=== PATIENT | male | born 1950 | race Caucasian/White ===

== ENCOUNTER → 2017-07-30 | Day surgery (SDC) | payer OTHER, MEDICARE, MEDICAID ==
[2017-07-29 12:22] LABS: BASOPHILS % (AUTO) 0.4 % (0-1); EOSINOPHILS # (AUTO) 0.3 X10'3 (0-0.9); EOSINOPHILS % (AUTO) 2.6 % (0-6); LYMPHOCYTES # (AUTO) 1.5 X10'3 (1.1-4.8); LYMPHOCYTES % (AUTO) 15.7 % (21-51); MEAN CORPUSCULAR HEMOGLOBIN 30.4 PG (27.0-31.0); MEAN CORPUSCULAR HGB CONC 33.9 % (33.0-36.5); MEAN CORPUSCULAR VOLUME 89.6 FL (78-98); MEAN PLATELET VOLUME 9.6 FL (7.4-10.4); MONOCYTES # (AUTO) 0.9 X10'3 (0-0.9); MONOCYTES % (AUTO) 9.3 % (2-12); NEUTROPHILS # (AUTO) 7.1 X10'3 (1.8-7.7); PRE OP HEMOGLOBIN 14.6 g/dL (14.0-17.9); PRE OP PLATELET COUNT 193 X10'3 (140-440); RED CELL DISTRIBUTION WIDTH 15.2 % (11.5-14.5)
[2017-07-29 12:24] LABS: CLARITY,URINE CLEAR (Clear); COLOR,URINE YELLOW (Yellow); GLUCOSE, URINE NEGATIVE (Neg); KETONES,URINE NEGATIVE (Neg); LEUKOCYTE ESTERASE ,URINE NEGATIVE (Neg); NITRITES, URINE NEGATIVE (Neg); OCCULT BLOOD,URINE NEGATIVE (Neg); PH,URINE 5.5 (4.8-8.0); PROTEIN,URINE NEGATIVE (Neg); UROBILINOGEN,URINE 0.2 E.U/dL (0.2-1.0)
[2017-07-29 12:25] LABS: UA COLLECTION TYPE NON-SPECIFIED
[2017-07-29 12:32] LABS: HEMOGLOBIN A1C 5.7 % (4.5-6.2)
[2017-07-29 12:36] LABS: ALBUMIN 3.9 G/DL (3.4-5.0); ALBUMIN/GLOBULIN RATIO 0.9 (1.1-1.5); ALKALINE PHOSPHATASE 119 IU/L (46-116); BLOOD UREA NITROGEN 16 MG/DL (7-18); BUN/CREATININE RATIO 11.1 (5.4-32.0); CALCIUM 9.3 MG/DL (8.5-10.1); CHLORIDE 105 MMOL/L (99-107); CREATININE 1.44 MG/DL (0.60-1.10); PRE OP ALT 21 U/L (30-65); PRE OP ANION GAP 8 (8-16); PRE OP AST 15 U/L (10-37); PRE OP BILIRUB, TOTAL 0.4 MG/DL (0.0-1.0); PRE OP GLUCOSE 108 MG/DL (70-104); PRE OP POTASSIUM 4.4 MMOL/L (3.4-5.1); PRE OP SODIUM 140 MMOL/L (135-145); TOTAL CARBON DIOXIDE 26.9 MMOL/L (24-32); TOTAL PROTEIN 8.2 G/DL (6.4-8.2); eGFR 49 ML/MIN
[~2017-07-30] VITALS: Ht 185.4 cm; Wt 72.1 kg
[~2017-07-30] MED LIST: ASPI-1265 PO; ATOR10TA PO; BUPIVAcaine 0.5% inj/PF 30 ML ONE; BUPIVAcaine/PF 2.5 mg/ml (0.25%) 30ml vial ONE; DOCUMENT DATE & TIME OF BETA-BLOCKER PO ONE; FLO0.4C PO; LIDOcaine 1% (10mg/ml) 2ml vial ONE; LIDOcaine 1% 30ml vial 30 ML ONE; LIDOcaine 2% (20mg/ml) 5ml vial ONE; METO25TA6 PO; cefazolin/dext.iso 2gm/50ml 50 ML IV ONE; dextrose 50%-water 50ml dispensing syringe IV PRN; famotidine 20mg tablet PO ONE; fentaNYL/PF 50MCG/1 ML 2ML syringe ONE; glycopyrrolate 0.2mg/ml inj ONE; insulin regular, human 100 UNITS in normal saline 100ml IV soln 99 ML IV SCH; meperidine/PF 50mg/ml syringe IV PRN; metoprolol tartrate 12.5mg (1/2 tablet) PO ONE; midazolam 2 mg/2 ml injection ONE; morphine 2 MG/ML inj. syringe IV PRN; mupirocin 2% ointment 22GM TP SCH; neostigmine methylsulfate 1 MG/ML 10ml vial ONE; ondansetron/PF 4mg/2ml inj IV PRN; proCHLORperazine 10 MG/2 ml inj IV PRN; propofol inj 20 ML IV ONE; ringers solution, lacted 1,000 ML IV SCH; rocuronium 10mg/ml inj IV ONE; sevoflurane 250ml liquid IH ONE
[2017-07-30 09:50] VITALS: BP 109/72
[2017-07-30 10:00] VITALS: BP 111/68
[2017-07-30 10:10] VITALS: BP 115/77
[2017-07-30 10:20] VITALS: BP_SYST 110; BP_SYST 113; BP_DIAS 65; BP_DIAS 69
[2017-07-30 10:30] VITALS: BP 111/71
[2017-07-30 10:40] VITALS: BP 115/75
== END | disposition home or self-care (01) ==
LOC: PAS 05:21
PROVIDERS: ATTEND Thoracic Surgery (Cardiothoracic Vascular Surgery)
DX: T82.847A Pain due to cardiac prosthetic devices, implants and grafts, initial encounter (principal); I25.10 Atherosclerotic heart disease of native coronary artery without angina pectoris; I10 Essential (primary) hypertension; F32.89 Other specified depressive episodes; E78.00 Pure hypercholesterolemia, unspecified; B19.20 Unspecified viral hepatitis C without hepatic coma; N40.0 Benign prostatic hyperplasia without lower urinary tract symptoms; G89.18 Other acute postprocedural pain; Z87.891 Personal history of nicotine dependence; Z86.711 Personal history of pulmonary embolism; Z90.89 Acquired absence of other organs; Z79.82 Long term (current) use of aspirin; Z79.899 Other long term (current) drug therapy; Z95.1 Presence of aortocoronary bypass graft; Y83.2 Surgical operation with anastomosis, bypass or graft as the cause of abnormal reaction of the patient, or of later complication, without mention of misadventure at the time of the procedure; Y92.9 Unspecified place or not applicable
CPT/HCPCS: 20680; 36415; 71046; 80053; 81003; 82948; 83036; 85025; 85610; 85730; 86885; 86900; 86901; 93005; A6255; A6449; J0690; J2001; J2250; J2704; J2710; J3010; J3490; J7030; J7120; A7000; J1815

== ENCOUNTER 2020-03-19 08:43 | Day surgery (SDC) | payer MEDICARE, MEDICAID ==
[2020-03-19] VITALS (10 sets, daily range): BP systolic 103–146; BP diastolic 65–97
[~2020-03-19] VITALS: Ht 190.5 cm; Wt 77.0 kg
[~2020-03-19 08:43] MED LIST changes: -BUPIVAcaine 0.5% inj/PF 30 ML ONE; -BUPIVAcaine/PF 2.5 mg/ml (0.25%) 30ml vial ONE; -DOCUMENT DATE & TIME OF BETA-BLOCKER PO ONE; -LIDOcaine 1% (10mg/ml) 2ml vial ONE; -LIDOcaine 1% 30ml vial 30 ML ONE; -LIDOcaine 2% (20mg/ml) 5ml vial ONE; -cefazolin/dext.iso 2gm/50ml 50 ML IV ONE; -dextrose 50%-water 50ml dispensing syringe IV PRN; -famotidine 20mg tablet PO ONE; -fentaNYL/PF 50MCG/1 ML 2ML syringe ONE; -glycopyrrolate 0.2mg/ml inj ONE; -insulin regular, human 100 UNITS in normal saline 100ml IV soln 99 ML IV SCH; -meperidine/PF 50mg/ml syringe IV PRN; -metoprolol tartrate 12.5mg (1/2 tablet) PO ONE; -midazolam 2 mg/2 ml injection ONE; -morphine 2 MG/ML inj. syringe IV PRN; -mupirocin 2% ointment 22GM TP SCH; -neostigmine methylsulfate 1 MG/ML 10ml vial ONE; -ondansetron/PF 4mg/2ml inj IV PRN; -proCHLORperazine 10 MG/2 ml inj IV PRN; -propofol inj 20 ML IV ONE; -ringers solution, lacted 1,000 ML IV SCH; -rocuronium 10mg/ml inj IV ONE; -sevoflurane 250ml liquid IH ONE
[2020-03-19] MEDS ORDERED: diphenhydrAMINE 25mg capsule PO PRN (09:05)
[2020-03-19] MEDS ORDERED: normal saline 1,000 ML IV SCH ×2 (09:05→13:20)
[2020-03-19] MEDS ORDERED: RIVA20TA PO (09:10)
[2020-03-19] MEDS ORDERED: ATOR20TA PO (09:10)
[2020-03-19] MEDS ORDERED: CARV25TA PO (09:10)
[2020-03-19] MEDS ORDERED: AMLO5TAB PO (09:10)
[2020-03-19 09:43] LABS: BASOPHILS % (AUTO) 0.7 % (0-1); EOSINOPHILS # (AUTO) 0.3 X10'3 (0-0.9); HEMATOCRIT 45.2 % (42.0-52.0); HEMOGLOBIN 15.2 g/dl (14.0-17.9); LYMPHOCYTES # (AUTO) 1.4 X10'3 (1.1-4.8); LYMPHOCYTES % (AUTO) 22.7 % (21-51); MEAN CORPUSCULAR HGB CONC 33.6 g/dL (33.0-36.5); MEAN CORPUSCULAR VOLUME 95.5 FL (78-98); MEAN PLATELET VOLUME 9.9 FL (7.4-10.4); MONOCYTES # (AUTO) 0.7 X10'3 (0-0.9); MONOCYTES % (AUTO) 11.5 % (2-12); NEUTROPHILS # (AUTO) 3.8 X10'3 (1.8-7.7); NEUTROPHILS % (AUTO) 61.1 % (42-75); PLATELET COUNT 167 X10'3 (140-440); RED BLOOD COUNT 4.74 X10'6 (4.70-6.10); RED CELL DISTRIBUTION WIDTH 14.2 % (11.5-14.5); WHITE BLOOD COUNT 6.2 X10'3 (4.5-11.0)
[2020-03-19 09:56] LABS: ALBUMIN 3.9 G/DL (3.4-5.0); ANION GAP 6 (8-16); BLOOD UREA NITROGEN 13 MG/DL (7-18); BUN/CREATININE RATIO 8.7 (5.4-32.0); CALCIUM 9.5 MG/DL (8.5-10.1); CHLORIDE 105 MMOL/L (99-107); CREATININE 1.49 MG/DL (0.60-1.10); GLUCOSE 98 MG/DL (70-104); MAGNESIUM 2.2 MG/DL (1.5-2.4); POTASSIUM 4.1 MMOL/L (3.5-5.1); SODIUM 136 MMOL/L (135-145); TOTAL CARBON DIOXIDE 25.5 MMOL/L (24-32); eGFR 47 ML/MIN
[2020-03-19] MEDS ORDERED: iohexol 350 MG/ML 50ML vial IV ONE (10:43)
[2020-03-19] MEDS ORDERED: LIDOcaine 1% (10mg/ml)w/preservative injection 20ml MDV ONE (10:43)
[2020-03-19] MEDS ORDERED: heparin 1,000unit/ml 10ml vial 10 ML ONE ×2 (10:43→12:23)
[2020-03-19] MEDS ORDERED: fentaNYL/PF 50MCG/1 ML 2ML syringe ONE ×2 (10:43→12:22)
[2020-03-19] MEDS ORDERED: iohexol 350 MG/1 ML 200ml bottle ONE (10:43)
[2020-03-19] MEDS ORDERED: proCHLORperazine 10 MG/2 ml inj ONE (10:43)
[2020-03-19] MEDS ORDERED: midazolam 2 mg/2 ml injection ONE ×3 (10:43→12:12)
[2020-03-19] MEDS ORDERED: clopidogrel 300mg tablet ONE (12:43)
[2020-03-19] MEDS ORDERED: furosemide 20 MG/2 ML vial IV ONE (13:15)
[2020-03-19] MEDS ORDERED: ondansetron/PF 4mg/2ml inj IV PRN (13:15)
[2020-03-19] MEDS ORDERED: HYDROcodone/acetaminophen 5mg/325mg tablet PO PRN (13:20)
[2020-03-19] MEDS ORDERED: HYDROcodone/acetaminophen 10/325mg tab PO PRN (13:20)
[2020-03-19] MEDS ORDERED: proCHLORperazine 10 MG/2 ml inj IV PRN (13:20)
== END 2020-03-19 17:10 | disposition home or self-care (01) ==
LOC: SSTAY O 08:43
PROVIDERS: ATTEND Internal Medicine Cardiovascular Disease
DX: I70.213 Atherosclerosis of native arteries of extremities with intermittent claudication, bilateral legs (principal); I25.10 Atherosclerotic heart disease of native coronary artery without angina pectoris; I12.9 Hypertensive chronic kidney disease with stage 1 through stage 4 chronic kidney disease, or unspecified chronic kidney disease; N18.3 Chronic kidney disease, stage 3 (moderate); E78.00 Pure hypercholesterolemia, unspecified; Z86.718 Personal history of other venous thrombosis and embolism; Z86.19 Personal history of other infectious and parasitic diseases; Z79.899 Other long term (current) drug therapy; Z86.711 Personal history of pulmonary embolism; Z90.49 Acquired absence of other specified parts of digestive tract; Z95.1 Presence of aortocoronary bypass graft; Z87.891 Personal history of nicotine dependence; Z86.72 Personal history of thrombophlebitis
CPT/HCPCS: 36415; 37226; 75716; 80048; 83735; 85025; 85610; 93005; 99152; 99153; C1725; C1760; C1769; C1876; C1887; C1894; J0780; J1644; J1940; J2001; J2250; J3010; J7030; Q0163; Q9967; 36140; 36245; A4620; A6258; C2623

== ENCOUNTER 2020-12-10 09:13 | Day surgery (SDC) | payer MEDICARE, MEDICAID ==
[~2020-12-10] VITALS: Ht 185.4 cm; Wt 78.5 kg
[2020-12-10] VITALS (17 sets, daily range): BP systolic 125–175; BP diastolic 51–107
[~2020-12-10 09:13] MED LIST changes: +AMLO5TAB PO; -ASPI-1265 PO; -ATOR10TA PO; +ATOR20TA PO; +CARV25TA PO; -FLO0.4C PO; -METO25TA6 PO; +RIVA20TA PO
[2020-12-10] MEDS ORDERED: normal saline 1,000 ML IV SCH (09:45)
[2020-12-10] MEDS ORDERED: diphenhydrAMINE 25mg capsule PO PRN (09:45)
[2020-12-10 10:14] LABS: BASOPHILS # (AUTO) 0.1 X10'3 (0-0.2); BASOPHILS % (AUTO) 0.8 % (0-1); EOSINOPHILS # (AUTO) 0.3 X10'3 (0-0.9); EOSINOPHILS % (AUTO) 3.3 % (0-6); HEMATOCRIT 46.8 % (42.0-52.0); LYMPHOCYTES # (AUTO) 1.5 X10'3 (1.1-4.8); LYMPHOCYTES % (AUTO) 18.5 % (21-51); MEAN CORPUSCULAR HEMOGLOBIN 32.1 PG (27.0-31.0); MEAN CORPUSCULAR HGB CONC 34.1 g/dL (33.0-36.5); MEAN CORPUSCULAR VOLUME 94.1 FL (78-98); MEAN PLATELET VOLUME 10.6 FL (7.4-10.4); MONOCYTES % (AUTO) 11.7 % (2-12); NEUTROPHILS # (AUTO) 5.3 X10'3 (1.8-7.7); NEUTROPHILS % (AUTO) 65.7 % (42-75); PLATELET COUNT 147 X10'3 (140-440); RED BLOOD COUNT 4.98 X10'6 (4.70-6.10); RED CELL DISTRIBUTION WIDTH 14.7 % (11.5-14.5); WHITE BLOOD COUNT 8.1 X10'3 (4.5-11.0)
[2020-12-10] MEDS ORDERED: HYDR12.55 PO (10:14)
[2020-12-10] MEDS ORDERED: CLOP75TA34 PO (10:14)
[2020-12-10 10:23] LABS: ALBUMIN 3.9 G/DL (3.4-5.0); ANION GAP 11 (8-16); BLOOD UREA NITROGEN 16 MG/DL (7-18); BUN/CREATININE RATIO 10.4 (5.4-32.0); CALCIUM 9.3 MG/DL (8.5-10.1); CHLORIDE 104 MMOL/L (99-107); CREATININE 1.54 MG/DL (0.60-1.10); GLUCOSE 103 MG/DL (70-104); POTASSIUM 3.5 MMOL/L (3.5-5.1); SODIUM 142 MMOL/L (135-145); TOTAL CARBON DIOXIDE 27.3 MMOL/L (24-32); eGFR 45 ML/MIN
[2020-12-10 11:03] LABS: LARGE PLATELETS FEW; PLATELET ESTIMATE NORMAL
[2020-12-10] MEDS ORDERED: midazolam 1 mg/ML 2ml injection ONE ×3 (11:19→12:32)
[2020-12-10] MEDS ORDERED: iohexol 350MG/ML 100ml bottle IV ONE ×2 (11:19→12:28)
[2020-12-10] MEDS ORDERED: heparin 1,000unit/ml 10ml vial 10 ML ONE (11:19)
[2020-12-10] MEDS ORDERED: fentaNYL/PF 50MCG/1 ML 2ML syringe ONE ×2 (11:19→12:32)
[2020-12-10] MEDS ORDERED: LIDOcaine 1% (10mg/ml)w/preservative injection 20ml MDV ONE (11:19)
[2020-12-10] MEDS ORDERED: iohexol 350 MG/ML 50ML vial IV ONE ×2 (11:19→12:17)
[2020-12-10] MEDS ORDERED: clopidogrel 300mg tablet ONE (12:47)
[2020-12-10] MEDS ORDERED: acetaminophen 325mg tablet PO PRN (13:25)
[2020-12-10] MEDS ORDERED: HYDROcodone/acetaminophen 10/325mg tab PO PRN (13:25)
[2020-12-10] MEDS ORDERED: HYDROcodone/acetaminophen 5mg/325mg tablet PO PRN (13:25)
[2020-12-10] MEDS ORDERED: ondansetron/PF 4mg/2ml inj IV PRN (13:25)
[2020-12-10] MEDS ORDERED: proCHLORperazine 10 MG/2 ml inj IV PRN (13:25)
== END 2020-12-10 17:40 | disposition home or self-care (01) ==
LOC: SSTAY O 09:13
PROVIDERS: ATTEND Internal Medicine Cardiovascular Disease
DX: R94.39 Abnormal result of other cardiovascular function study (principal); R07.89 Other chest pain; I25.810 Atherosclerosis of coronary artery bypass graft(s) without angina pectoris; I25.82 Chronic total occlusion of coronary artery; I10 Essential (primary) hypertension; E78.5 Hyperlipidemia, unspecified; Z79.01 Long term (current) use of anticoagulants; Z79.899 Other long term (current) drug therapy; Z86.718 Personal history of other venous thrombosis and embolism; Z86.711 Personal history of pulmonary embolism; Z86.19 Personal history of other infectious and parasitic diseases; Z98.890 Other specified postprocedural states; Z87.891 Personal history of nicotine dependence; Z90.49 Acquired absence of other specified parts of digestive tract; Z82.49 Family history of ischemic heart disease and other diseases of the circulatory system; Z80.0 Family history of malignant neoplasm of digestive organs
CPT/HCPCS: 36415; 80048; 83735; 85025; 85610; 93005; 93459; 99152; 99153; C1725; C1751; C1760; C1769; C1874; C1894; C9600; J1644; J2001; J2250; J3010; Q0163; Q9967; 85008; A4620; A6258